=== PATIENT | male | born 1960 | race American Indian/Alaskan Native ===

== ENCOUNTER 2018-07-17 08:32 | Outpatient (CLI) | payer MEDICARE ==
--- NOTE | 2018-07-17 10:35 | Ultrasound Report ---
RIGHT UPPER QUADRANT ABDOMINAL ULTRASOUND: 07/17/18 08:32:00 CLINICAL: Generalized abdominal fullness. FINDINGS: High-resolution ultrasound demonstrated a normal liver with normal size, contour and echogenicity. Normal hepatic vasculature and inferior vena cava. Normally distended gallbladder with no stones. The gall bladder wall measures 2.1 mm in thickness. Normal intrahepatic and extra hepatic bile ducts. The common bile duct measures 3.1 mm diameter. Normal pancreatic head and body. Limited imaging of the pancreatic tail due to bowel gas. Normal upper abdominal aorta. The right kidney is normal and measures 11.6 x 4.8 x 5.5cm. No ascites or mass. IMPRESSION: No cholelithiasis. Limited imaging of the pancreas but no signs of pancreatitis.
== END 2018-07-17 08:33 | disposition home or self-care (01) ==
LOC: SPVWC 08:32
PROVIDERS: ATTEND Internal Medicine
DX: R19.8 Other specified symptoms and signs involving the digestive system and abdomen (principal)
CPT/HCPCS: 76705